=== PATIENT | male | born 1945 | race Caucasian/White ===

== ENCOUNTER → 2017-09-07 | Outpatient (CLI) | payer OTHER ==
[~2017-09-07] MED LIST: ASPIR 8181 MG PO; CALCIUM + VITA1 EACH PO; CENTRUM SILVER1 EAC4 PO; CITRACAL + D E1 EACH PO; COLACE100 MG PO; COREG3.125 MG PO; EFFIENT10 MG PO; LIPITOR 20 MG T20 M1 PO; LISINOPRIL5 MG PO; MEDROLDOSEPACK PO; MIRALAX17 GM PO; NITROGLYCERIN0.4 MG SUBLING; PROAIR HFA8.5 GM PO; PROTONIX40 M1 PO; VITAMIN D1000 UNI1 PO
== END ==
LOC: M.RAD 16:18
DX: M25.761 Osteophyte, right knee (principal); M25.461 Effusion, right knee

== ENCOUNTER → 2017-09-25 | Outpatient (CLI) | payer OTHER ==
[2017-09-25 14:44] LABS: CHOLESTEROL 142 mg/dL (<200); HDL CHOLESTEROL 21 mg/dL (>40); LDL CHOLESTEROL 73 mg/dL (<100); TC:HDL 6.8 Ratio (Not establshd); TRIGLYCERIDE 244 mg/dL (<150); VLDL 49 mg/dL (<40)
[2017-09-25 14:45] LABS: SERUM ASSESSMENT Clear
== END ==
LOC: M.LAB 14:02
PROVIDERS: Internal Medicine Cardiovascular Disease
DX: E78.2 Mixed hyperlipidemia (principal); R00.0 Tachycardia, unspecified

== ENCOUNTER → 2018-09-16 | Outpatient (CLI) | payer OTHER ==
--- NOTE | 2018-09-16 16:54 | CARDNUC ---
[place] [address] CARDIAC NUCLEAR IMAGING REPORT Name: LINDSEY LANGFORD Room: [facility]#: [id number] Admission: 09/16/18 Attend Phys: Kimberli Keating, Discharge: Date of : 41 Date of Service: 09/16/18 1653 Report #: [id number] THIS REPORT FOR: //name// APPROVED REPORT Study performed: 09/16/2018 14:26:39 Exam: Nuclear Stress Test Indication: Chest pain, Dyspnea Patient Location: Out-Patient Stress Tech: Shannon Thomas Stress Nurse: Marti Gomez RN Ht: 5 ft 9 in Wt: 176 lbs BSA: 1.96 m2 BMI: 25.98 Medical History Medical History: Angina, Arrhythmia, CAD s/p stent, Diabetes, Fatigue, HTN, Hyperlipidemia, Smoking, SOB. Medications: ASA 81 Mg, Atorvastatin, Fenofibrate, Metoprolol, Metformin. Allergies: No known drug allergies Cardiac Risk Factors: Age, Current Smoker, DM, FHX of CAD, HTN, Hyperlipidemia, SOB, PCI. Previous Cardiac Procedures: PCI Pretest Chest Pain Characteristics: No chest pain Exercise History: Indeterminate Physical Disabilities: SOA, Current smoker. Meds Held (24 hrs): Metoprolol. Stress Test Details Stress Test: Exercise stress testing was performed using a Ez protocol. HR Resting HR: 68 bpm Max Heart Rate (APMHR): 145 bpm Max HR Achieved: 154 bpm Target HR (85% APMHR): 123 bpm % of APMHR: 106 Recovery HR: 98 bpm BP Resting BP: 129/74 mmHg Max BP: 208/88 mmHg ECG Resting ECG: Sinus Rhythm, [place] [address] CARDIAC NUCLEAR IMAGING REPORT Name: LINDSEY LANGFORD Room: [facility]#: [id number] Admission: 09/16/18 Attend Phys: Kimberli Keating, Discharge: Date of : 41 Date of Service: 09/16/18 1653 Report #: [id number] Stress ECG: Sinus Tachycardia, RBBB ST Change: None Arrhythmia: None Recovery ECG: Sinus Rhythm, RBBB Recovery ST Change: None Recovery Arrhythmia: None Clinical Reason for Termination: Completed protocol, Target HR achieved, Maximal effort. Stress Symptoms: Dyspnea, Fatigue Exercise duration: 5 min 5 sec Exercise capacity: 7.05 METs The patient tolerated standard Ez protocol exercise without significant cardiac symptoms. Nurse Comments 73 year old male smoker, presented with recent HX of CP and SOA. Patient tolerated Ez Protocol Nuc Stress. Recovery unremarkable. Patient escorted by staff to Nuclear Medicine for images. Patient stable with no complaints at that time. Stress ECG Conclusion The baseline 12-lead EKG shows sinus rhythm with right bundle-branch block and some mild nonspecific ST segment depression. EKGs obtained during and post exercise stress shows sinus rhythm and sinus tachycardia with more pronounced ST segment depression and continued right bundle-branch block. There were no stress-induced arrhythmias. NM EXAM: Myocardial Perfusion REST/STRESS Imaging Protocol: Rest Tc-99m/Stress Tc-99m 1 day Resting Data Rest SPECT myocardial perfusion imaging was performed in supine position 30 minutes following the intravenous injection of 11.0 mCi of Tc-99m Sestamibi. Time of rest injection: 13:05 The images were gated to evaluate regional wall motion and calculate left ventricular ejection fraction. Administration Route: IV Administration Site: Right Hand Exercise Stress At peak stress, the patient was injected intravenously with 32.0mCi of Tc-99m [place] [address] CARDIAC NUCLEAR IMAGING REPORT Name: LINDSEY LANGFORD Room: [facility]#: [id number] Admission: 09/16/18 Attend Phys: Kimberli Keating, Discharge: Date of : 41 Date of Service: 09/16/18 1653 Report #: [id number] Time of stress injection: 14:45 Administration Route: IV Administration Site: Right Hand Heart Rate at time of stress injection: 154 bpm. Gated Stress SPECT was performed 30 minutes after stress injection. The images were gated to evaluate regional wall motion and calculate left ventricular ejection fraction. Prone imaging was performed. Study Quality Study: Good Artifact: Mild Diaphragmatic artifact Study Data At rest, the left ventricular ejection fraction was 58%.. Post stress, the left ventricular ejection was 54%.. TID = 0.87. Perfusion Perfusion images obtained in the supine position at rest and post exercise stress show a moderate region of photopenia involving the inferior wall that resolves with post stress prone imaging suggesting diaphragmatic attenuation artifact. No other significant fixed or reversible defects were identified. Wall Motion Left ventricular dyssynergy was noted consistent with underlying bundle branch block. Global LV systolic function was preserved. Nuclear Conclusion ECG Findings: non-diagnostic Clinical Findings: negative for ischemia Nuclear Findings: negative for ischemia Exercise Capacity: normal Left Ventricular Function: preserved Risk Study: low Myocardial perfusion images show no defect to suggest infarct or ischemia. Global LV systolic function is well-preserved. This is a low risk study. <Conclusion> The baseline 12-lead EKG shows sinus rhythm with right bundle-branch block and some mild nonspecific ST segment depression. EKGs obtained during and post exercise stress shows sinus [place] [address] CARDIAC NUCLEAR IMAGING REPORT Name: LINDSEY LANGFORD Room: [facility]#: [id number] Admission: 09/16/18 Attend Phys: Kimberli Keating, Discharge: Date of : 41 Date of Service: 09/16/18 1653 Report #: [id number] tachycardia with more pronounced ST segment depression and continued right bundle-branch block. There were no stress-induced arrhythmias. <ELECTRONICALLY SIGNED> By: Alonso Ramírez MD, FACC 09/16/181652 52 52 Alonso Ramírez MD, FACC /INF
== END ==
LOC: M.NUC 08-27 10:52
DX: R07.9 Chest pain, unspecified (principal); I25.10 Atherosclerotic heart disease of native coronary artery without angina pectoris; I10 Essential (primary) hypertension; E78.2 Mixed hyperlipidemia; Z82.49 Family history of ischemic heart disease and other diseases of the circulatory system; F17.210 Nicotine dependence, cigarettes, uncomplicated; E11.9 Type 2 diabetes mellitus without complications

== ENCOUNTER → 2021-02-09 | Outpatient (CLI) | payer OTHER ==
--- NOTE | 2021-02-09 17:22 | CARDNUC ---
[place] [address] CARDIAC NUCLEAR IMAGING REPORT Name: LINDSEY LANGFORD Room: [facility]#: [id number] Admission: 02/09/21 Attend Phys: Alonso Ramírez, Discharge: Date of : 41 Date of Service: 02/09/21 1721 Report #: [id number] THIS REPORT FOR: cc: Charlene Conn Maggie M. DO Liston, Michael J. MD [facility] ~ APPROVED REPORT Study performed: 02/09/2021 10:07:07 Exam: Nuclear Stress Test Indication: Dyspnea Stress Tech: SABINA HORN Stress Nurse: Naima Eckert RN NM Tech:LOLI Farley Ht: 5 ft 9 in Wt: 174 lbs BSA: 1.95 m2 BMI: 25.69 Medical History Medical History: CAD s/p stent, Diabetes, HTN, Hyperlipidemia Medications: asa-81, atorvastatin, fennofibrate, lisinopril, metoprolol Allergies: No known drug allergies Cardiac Risk Factors: Age, HTN, Hyperlipidemia Previous Cardiac Procedures: PCI Exercise History: Physically active Meds Held (24 hrs): metoprolol Stress Test Details Stress Test: Exercise stress testing was performed using a Ez protocol. HR Resting HR: 76 bpm Max Heart Rate (APMHR): 143 bpm Max HR Achieved: 136 bpm Target HR (85% APMHR): 121 bpm % of APMHR: 95 Recovery HR: 95 bpm HR response to stress: Abnormal HR response to stress BP Resting BP: 138/66 mmHg Max BP: 164/[place] [address] CARDIAC NUCLEAR IMAGING REPORT Name: LINDSEY LANGFORD Room: [facility]#: [id number] Admission: 02/09/21 Attend Phys: Alonso Ramírez, Discharge: Date of : 41 Date of Service: 02/09/21 1721 Report #: [id number] ECG Resting ECG: Sinus Rhythm, RBBB Stress ECG: Sinus tachycardia, RBBB ST Change: None Arrhythmia: None Recovery ECG: Sinus Rhythm, RBBB Recovery ST Change: None Recovery Arrhythmia: None Clinical Reason for Termination: Leg pain/Claudication Exercise duration: 4 min 59 sec Exercise capacity: 4.59 METs Functional Aerobic Impairment 95% The patient tolerated walking Lexiscan protocol without significant cardiac symptoms. Stress ECG Conclusion The baseline twelve-lead EKG shows sinus rhythm with right bundle branch block. EKGs obtained during and post walking Lexiscan protocol shows sinus rhythm and sinus tachycardia with no significant ST segment changes when compared to baseline. There were no stress-induced arrhythmias. NM EXAM: Myocardial Perfusion REST/STRESS Imaging Protocol: Rest Tc-99m/Stress Tc-99m 1 day Resting Data Rest SPECT myocardial perfusion imaging was performed in supine position 30 minutes following the intravenous injection of 12.0 mCi of Tc-99m Sestamibi. Time of rest injection: 904 Date: 02/09/2021 The images were gated to evaluate regional wall motion and calculate left ventricular ejection fraction. Administration Route: IV Administration Site: Right Arm Exercise Stress At peak stress, the patient was injected intravenously with 30.5mCi of Tc-99m Sestamibi. Time of stress injection: 1019 Date: 02/09/2021 Administration Route: IV Administration Site: Right Arm Gated Stress SPECT was performed 30 minutes after stress injection. The images were gated to evaluate regional [place] [address] CARDIAC NUCLEAR IMAGING REPORT Name: LINDSEY LANGFORD Room: [facility]#: [id number] Admission: 02/09/21 Attend Phys: Alonso Ramírez, Discharge: Date of : 41 Date of Service: 02/09/21 1721 Report #: [id number] left ventricular ejection fraction. Prone imaging was performed. Study Quality Study: Good Artifact: Mild Diaphragmatic artifact Study Data At rest, the left ventricular ejection fraction was 57%.. Post stress, the left ventricular ejection was 59%.. Perfusion Perfusion images obtained in the supine position at rest and post walking Lexiscan stress show a moderate region of photopenia in the inferior wall that resolved completely with post stress prone imaging consistent with diaphragmatic attenuation artifact. No other significant fixed or reversible defects were identified. Wall Motion Normal left ventricular wall motion. Nuclear Conclusion ECG Findings: negative for ischemia Clinical Findings: negative for ischemia Nuclear Findings: negative for ischemia Exercise Capacity: not assessed Left Ventricular Function: normal Risk Study: low Perfusion images show no evidence of infarct or ischemia. Left-ventricular systolic function appears normal on gated images. This is a low risk study. <Conclusion> The baseline twelve-lead EKG shows sinus rhythm with right bundle branch block. EKGs obtained during and post walking Lexiscan protocol shows sinus rhythm and sinus tachycardia with no significant ST segment changes when compared to baseline. There were no stress-induced arrhythmias. <ELECTRONICALLY SIGNED> By: Alonso Ramírez MD, FACC 02/09/211720 20 20 Alonso Ramírez MD, FACC /INF
== END ==
LOC: M.NUC 02-02 13:49
PROVIDERS: ATTEND Internal Medicine Cardiovascular Disease
DX: I25.10 Atherosclerotic heart disease of native coronary artery without angina pectoris (principal); I10 Essential (primary) hypertension; E78.2 Mixed hyperlipidemia; E11.9 Type 2 diabetes mellitus without complications

== ENCOUNTER → 2021-07-05 | Outpatient (CLI) | payer BC | LOC: M.CT 13:00 | PROVIDERS: ATTEND Family Medicine | DX: K57.30 Diverticulosis of large intestine without perforation or abscess without bleeding (principal); N21.0 Calculus in bladder; R31.0 Gross hematuria; M25.78 Osteophyte, vertebrae ==